=== PATIENT | female | born 1980 | race Caucasian/White ===

== ENCOUNTER 2021-02-19 20:52 | Emergency (ER) | payer OTHER, SELFPAY ==
[2019-11-16 07:30] VITALS: BMI 21.9
[2021-02-19 20:55] VITALS: BP 93/45; PULSE 78; RESP 18; TEMP 37.4; O2SAT 96; BMI 21.4
--- NOTE | 2021-02-19 21:28 | EDS_ITS ---
HPI History of Present Illness Chief Complaint: Nausea/Vomiting/Diarrhea Informant: patient Narrative Narrative: 40-year-old female states she got her second Covid shot on Thursday. She is felt a little rundown but was getting better. Early this morning she developed nausea vomiting and diarrhea. This is persisted throughout the day. She notes a slight cough rhinorrhea and sore throat. She notes subjective fever and sweats. She denies any rashes. No shortness of breath or chest pain. PFSH PFSH no medical history Home Medications ondansetron 4 mg PO Q6H PRN PRN #15 tab 02/19/21 [Rx Last Taken Unknown] Allergy/AdvReac Type Severity Reaction Status Date / Time hydromorphone HCl Allergy Itching Verified 02/19/21 20:55 [From Dilaudid] Sulfa (Sulfonamide Allergy Hives Verified 02/19/21 20:55 Antibiotics) sulfamethoxazole Allergy Hives Verified 02/19/21 20:55 [From Bactrim] trimethoprim [From Bactrim] Allergy Hives Verified 02/19/21 20:55 codeine AdvReac Nausea/Vom/ Verified 02/19/21 20:55 Diarrhea Family History Other Cancer Diabetes Heart disease Surgical History History of back surgery History of hysterectomy Social History (Updated 02/19/21 @ 21:[address] Domenic Cumimngs DO) Smoking Status: Current every day smoker substance use type: does not use ROS ROS ED Constitutional Constitutional ED: Reports chills, fever(s), subjective and sweats; Denies weight loss Eyes Eyes: Denies change in vision or diplopia ENT ENT ED: Reports rhinorrhea and sore throat; Denies ear pain Cardiovascular Cardiovascular: Denies chest pain, orthopnea, palpitations or racing heartbeat Respiratory/Chest Respiratory/Chest: Reports cough; Denies dyspnea or orthopnea Gastrointestinal Gastrointestinal: Reports abdominal pain, diarrhea, nausea and vomiting Genitourinary Genitourinary ED: Denies dysuria, hematuria or urinary frequency Musculoskeletal Musculoskeletal: Denies arthralgias or myalgias Integumentary Denies abscess or rash Neurologic Neurologic: Denies headache(s) or weakness Psychiatric Psychiatric: Denies anxiety, depression, suicidal ideation or suicidal thoughts Endocrine Endocrinology: Denies polydipsia, polyphagia or polyuria Allergic/Immunologic Allergic/Immunologic ED: Denies mouth swelling, tongue swelling or urticaria EXAM Physical Exam Const Vital Signs: 02/19/21 20:55 02/19/21 22:40 Temperature 99.4 F H 98.8 F Temperature Source Temporal Temporal Pulse Rate 78 80 Respiratory Rate 18 18 Blood Pressure 93/45 L 101/64 Blood Pressure Mean 61 76 Pulse Ox 96 97 Oxygen Delivery Method Room Air Room Air Positive well nourished and well developed General Appearance ED: well developed HEENT Reports normocephalic, head/scalp atraumatic and moist mucous membranes Eyes PERRL and EOMs intact bilaterally Neck no lymphadenopathy, supple and no JVD Resp normal respiratory effort and clear to auscultation bilaterally Cardio regular rate, regular rhythm and no murmurs GI GI Narrative: Diffusely tender to palpation. I would classify this is a nonsurgical abdomen. Auscultation: normoactive bowel sounds Palpation: soft; Negative for guarding or rebound tenderness present Back/Spine no CVA tenderness and normal ROM Extremity normal to inspection General Extremety ED: Negative for edema General Extremity: Negative for edema Neuro oriented x3 and CN's II-XII intact bilaterally Sensorium / Orientation: alert Motor Exam: strength 5/5 throughout Psych mental status grossly normal Mood & Affect: Negative for depressed or tearful Skin no rashes or lesions noted and no wounds MDM MDM Lab Data Labs: Laboratory Results - last 24 hr 02/19/21 02/19/21 21:42 21:42 WBC 4.5 RBC 4.37 Hgb 13.5 Hct 39.6 MCV 90.6 MCH 30.9 MCHC 34.1 RDW Std Deviation 44.1 H RDW Coeff of Js 13.3 Plt Count 171 MPV 9.1 Immature Gran % (Auto) 0.200 Neut % (Auto) 87.6 H Lymph % (Auto) 7.6 L [place] % (Auto) 4.2 Eos % (Auto) 0.0 Baso % (Auto) 0.4 Absolute Neuts (auto) 3.9 Absolute Lymphs (auto) 0.34 L Nucleated RBC % 0 Differential Comment SCANNED Diff Path Review May foll Sodium 136 Potassium 3.1 L Chloride 104 Carbon Dioxide 24.0 Anion Gap 8 BUN 14 Creatinine 0.71 Estim Creat Clear Calc 90.95 Est GFR (MDRD) Af Amer 117 Est GFR (MDRD) Non-Af 97 BUN/Creatinine Ratio 19.7 Glucose 94 Calcium 8.6 Total Bilirubin 0.40 AST 18 ALT 19 Alkaline Phosphatase 47 Total Protein 7.0 Albumin 3.5 Globulin 3.5 Albumin/Globulin Ratio 1.0 Lipase 39 L Discharge Plan Triage Chief Complaint: Nausea/Vomiting/Diarrhea Other Complaint: Fever Complaint ED Provider: Domenic Cummings Dx/Rx/DC Orders Clinical Impression: Gastroenteritis Instructions: ED Gastroenteritis, Viral (Adult) Prescriptions: New ondansetron [ondansetron] 4 MG tablet 4 mg PO Q6H PRN PRN (Reason: Nausea) Qty: 15 RF: 0 Primary Care Provider: Care Physician,No Primary Referrals: Fernando Spaulding MD [STAFF PHYSICIAN] - As Needed (For primary care) Care Physician,No Primary [Primary Care Provider] - Disposition Disposition: Home, self care
[2021-02-19] MEDS: 0.9% Normal Saline 1,000 ML 1000 ML IV (21:45)
[2021-02-19] MEDS: Ketorolac 30 MG/ML Syringe IV (21:50)
[2021-02-19] MEDS: Ondansetron 4 MG/2 ML Vial IV (21:50)
[2021-02-19 21:51] LABS: Absolute Lymphocyte Count 0.34 X10^3/uL (0.83-4.51); Absolute Neutrophil Count 3.9 X10^3/uL (2.0-7.7); Basophil# 0.02 X10^3/uL; Basophil% 0.4 % (0-1); Hematocrit 39.6 % (37-47); Hemoglobin 13.5 g/dL (12.0-15.0); Lymphocyte # 0.34 X10^3/ul (0.83-4.51); Lymphocyte % 7.6 % (19-41); Mean Corp Hgb Conc 34.1 g/dL (32-36); Mean Corpuscular Hgb 30.9 pg (27.0-32.0); Mean Corpuscular Volume 90.6 fL (81-99); Mean Platelet Vol. 9.1 fl (6.2-12.0); Monocyte# 0.19 X10^3/uL; Monocyte% 4.2 % (0-10); NRBC Flagged by Analyzer 0 % (0-5); Neutrophil # 3.92 X10^3/uL (2.7-7.7); Neutrophil % 87.6 % (47-70); POSITIVE DIFFERENTIAL YES; Platelet Count 171 K/mm3 (150-450); RBC Distribution Width CV 13.3 % (11.6-14.6); RBC Distribution Width SD 44.1 fl (35.1-43.9); Red Blood Count 4.37 M/mm3 (4.2-5.4); White Blood Count 4.5 K/mm3 (4.4-11.0)
[2021-02-19 22:12] LABS: AST(SGOT) 18 U/L (15-37); Alanine Aminotransfer ALT/SGPT 19 U/L (13-56); Albumin, Serum 3.5 g/dL (3.2-5.0); Alkaline Phosphatase 47 U/L (45-117); Anion Gap 8 (5-15); BUN 14 mg/dL (7-18); BUN/Creat Ratio 19.7 RATIO (10-20); Calcium,Total 8.6 mg/dL (8.5-10.1); Chloride 104 mmol/L (98-107); Creatinine, Serum 0.71 mg/dL (0.55-1.02); EST Glomerular Filtration Rate 97 mL/min (>60); Est Glom Filt Rate - Afr Amer 117 mL/min (>60); Estimated Creatinine Clearance 90.95 ml/min; Globulin 3.5 g/dL (2.2-4.2); Glucose 94 mg/dL (74-106); Lipase 39 U/L (73-393); Potassium 3.1 mmol/L (3.5-5.1); Sodium Level 136 mmol/L (136-145)
[2021-02-19 22:17] LABS: Differential Comment SCANNED; Differential Indicated SCAN CRITERIA MET
[2021-02-19 22:40] VITALS: BP 101/64; PULSE 80; RESP 18; TEMP 37.1; O2SAT 97
[2021-02-20] MEDS: Ondansetron ODT 4 MG Tablet PO (00:08)
[2021-02-20 13:30] LABS: Pathologist Review Reviewed
== END 2021-02-20 00:10 | disposition home or self-care (01) ==
PROVIDERS: Emergency Provider Emergency Medicine
DX: K52.9 Noninfective gastroenteritis and colitis, unspecified (principal); F17.200 Nicotine dependence, unspecified, uncomplicated
CPT/HCPCS: 80053; 83690; 85025; 87426; 99282; J7030; A4216; J2405

== ENCOUNTER 2021-11-14 08:18 | Emergency (ER) | payer OTHER, SELFPAY ==
[2021-11-14 08:18] VITALS: BP 117/79; PULSE 83; RESP 16; TEMP 36.3; O2SAT 100; BMI 23.0
--- NOTE | 2021-11-14 08:45 | ED.VIS.GI ---
HPI HPI - GI History of Present Illness Chief Complaint: Abd Pain Informant: patient Abdominal Pain/Flank Pain Onset: Days (4) Context: Gradual Onset Timing: Continuous Quality: Burning Location: LUQ Worsened by: Nothing Relieved by: - (Drinking water) Nausea/Vomiting/Emesis GI Symptom: Positive for Nausea; Negative for Vomiting Diarrhea/Melena/Hematochezia GI Symptom: Negative for Diarrhea, Melena and Hematochezia Associated Symptoms Associated Symptoms: Positive for Dysuria; Negative for Frequency, Hematuria and Urgency Narrative Narrative: Patient presents with left upper quadrant abdominal pain that has been getting worse over the past 3 to 4 days. Patient states it is gradually getting worse. Patient describes her pain as burning. Patient states the pain is over the left upper quadrant and left flank area. Patient states her pain is better after drinking water. Patient states nothing makes it worse. Patient admits to nausea but denies any vomiting. Patient denies any diarrhea, melena, or hematochezia. Patient also admits to some dysuria but denies any hematuria or frequency. PFSH PFS Medical History ISAAC (generalized anxiety disorder) IBS (irritable bowel syndrome) PTSD (post-traumatic stress disorder) Home Medications cephalexin 500 mg PO Q6 #20 capsule 11/14/21 [Rx Last Taken Unknown] esomeprazole magnesium [Nexium] 20 mg PO DAILY 11/14/21 [History Last Taken Unknown] Allergy/AdvReac Type Severity Reaction Status Date / Time hydromorphone HCl Allergy Itching Verified 11/14/21 08:20 [From Dilaudid] Sulfa (Sulfonamide Allergy Hives Verified 11/14/21 08:20 Antibiotics) sulfamethoxazole Allergy Hives Verified 11/14/21 08:20 [From Bactrim] trimethoprim [From Bactrim] Allergy Hives Verified 11/14/21 08:20 codeine AdvReac Nausea/Vom/ Verified 11/14/21 08:20 Diarrhea Family History Other Cancer Diabetes Heart disease Surgical History History of back surgery History of hysterectomy Social History (Updated 11/14/21 @ 08:[address] Mike Schwiger, DO) Smoking Status: Current every day smoker tobacco type: cigarettes substance use type: marijuana ROS ROS ED Constitutional Constitutional ED: Reports chills and subjective; Denies fever(s) Eyes Eyes: Denies blurry vision or change in vision ENT ENT ED: Reports sore throat; Denies rhinorrhea Cardiovascular Cardiovascular: Denies chest pain or palpitations Respiratory/Chest Respiratory/Chest: Denies cough or dyspnea Gastrointestinal Gastrointestinal: Reports abdominal pain and nausea; Denies vomiting Genitourinary Genitourinary ED: Reports dysuria; Denies hematuria Musculoskeletal Musculoskeletal: Reports back pain; Denies neck pain Integumentary Denies abscess or rash Neurologic Neurologic: Reports headache(s); Denies weakness Allergic/Immunologic Allergic/Immunologic ED: Denies mouth swelling or urticaria EXAM Physical Exam Const Vital Signs: 11/14/21 08:18 11/14/21 10:47 Temperature 97.3 F L Temperature Source Temporal Pulse Rate 83 57 L Respiratory Rate 16 Blood Pressure 117/79 108/75 Blood Pressure Mean 91 86 Pulse Ox 100 Oxygen Delivery Method Room Air Positive well nourished and well developed General Appearance ED: well developed HEENT Reports moist mucous membranes Neck supple and no JVD Resp normal respiratory effort and clear to auscultation bilaterally Cardio regular rate, regular rhythm and no murmurs GI normal to inspection, nondistended, normoactive bowel sounds and non-distended Auscultation: normoactive bowel sounds Palpation: soft and tender LUQ; Negative for guarding or rebound tenderness present Extremity normal to inspection General Extremety ED: Negative for edema or tenderness General Extremity: Negative for edema Neuro oriented x3, CN's II-XII intact bilaterally and no sensory deficits noted Sensorium / Orientation: alert Motor Exam: strength 5/5 throughout Psych mental status grossly normal Skin no rashes or lesions noted MDM MDM MDM Narrative Medical decision making narrative: Patient was given IV fluids, morphine, and Zofran. CBC was within normal limits. Comprehensive metabolic profile was within normal limits. Lipase was normal. Urinalysis shows leukocyte esterase of 500 with 5-10 white blood cells and 10-25 squamous epithelial cells. There is 2+ bacteria. Urine culture was ordered. It is a contaminated specimen however, since the patient has pain in her left flank area, we will treat for possible urinary tract infection with Keflex. Patient was given her first dose here. Patient was instructed to follow-up with her primary care physician in 5 to 7 days. Patient understood and was agreeable with the plan. All questions were answered. Lab Data Attestation: I reviewed the patient's lab results. Labs: Laboratory Results - last 24 hr 11/14/21 11/14/21 11/14/21 08:31 08:38 08:38 WBC 7.0 RBC 4.52 Hgb 14.1 Hct 41.3 MCV 91.4 MCH 31.2 MCHC 34.1 RDW Std Deviation 46.5 H RDW Coeff of Js 13.6 Plt Count 279 MPV 8.8 Immature Gran % (Auto) 0.400 Neut % (Auto) 60.4 Lymph % (Auto) 30.0 [place] % (Auto) 6.5 Eos % (Auto) 2.0 Baso % (Auto) 0.7 Absolute Neuts (auto) 4.2 Absolute Lymphs (auto) 2.09 Nucleated RBC % 0 Sodium 137 Potassium 3.7 Chloride 105 Carbon Dioxide 26.0 Anion Gap 6 BUN 10 Creatinine 0.80 Estim Creat Clear Calc 76.55 Est GFR (MDRD) Af Amer 102 Est GFR (MDRD) Non-Af 84 BUN/Creatinine Ratio 12.6 Glucose 82 Calcium 8.8 Total Bilirubin 0.40 AST 15 ALT 22 Alkaline Phosphatase 59 Total Protein 7.4 Albumin 3.8 Globulin 3.6 Albumin/Globulin Ratio 1.1 Lipase 59 L Urine Color Yellow Urine Clarity Sl. Cloudy Urine pH 6.0 Ur Specific [place] 1.015 Urine Protein 15 H Urine Glucose (UA) Normal Urine Ketones Negative Urine Occult Blood Negative Urine Nitrite Negative Urine Bilirubin Negative Urine Urobilinogen Normal Ur Leukocyte Esterase 500 H Urine RBC 0 SEEN Urine WBC 5-10 SEEN Ur Squamous Epith Cells 10-25 SEEN Urine Bacteria 2+ Urine Mucus 0 SEEN Radiography Diagnostic Testing: Clinical Impression(s) from Imaging Studies Abdomen/Pelvis CT 11/14/21 08:50 IMPRESSION: 3.8 cm x 2.7 cm cyst is seen in the right adnexa with a minimal amount of free fluid in the right hemipelvis. Electronically Signed: Flakito Oneill MD at 10:56 EST , Discharge Plan Triage Chief Complaint: Abd Pain ED Provider: Mike Murdock Dx/Rx/DC Orders Clinical Impression: Left flank pain Instructions: ED CYSTITIS Female Adult Prescriptions: New cephalexin [cephalexin] 500 MG capsule 500 mg PO Q6 Qty: 20 RF: 0 No Action esomeprazole magnesium [Nexium] 20 mg Capsule,Delayed Release(Dr/Ec) 20 mg PO DAILY RF: 0 Primary Care Provider: Care Physician,No Primary Referrals: Crystal Day DO [STAFF PHYSICIAN] - 3-5 Days Care Physician,No Primary [Primary Care Provider] - Disposition Disposition: Home, Self Care
--- NOTE | 2021-11-14 08:50 | CT_ITS ---
STUDY: CT ABDOMEN AND PELVIS WITH CONTRAST REASON FOR EXAM: Female, 41 years old. Left flank pain. RADIATION DOSAGE (If Supplied By Facility): CTDIvol = ( 13.72 ) mGy, DLP = ( 368.36 ) mGycm TECHNIQUE: Transaxial images were obtained from the dome of the diaphragm to the symphysis pubis without oral contrast. Oral and amp; IV Gastrografin and amp; 100mL Isovue-300 was administered. Sagittal and coronal images were reconstructed. Individualized dose optimization techniques were used for this CT. COMPARISON: None. FINDINGS: The visualized lung bases are unremarkable. The visualized portions of the heart are within normal limits. Normal liver. Normal gallbladder and extrahepatic biliary system. Normal spleen. Normal pancreas. Normal bilateral adrenal glands. Normal right kidney. Normal left kidney. Normal visualized stomach. Normal small intestine. Normal colon. The appendix is visualized and appears normal. Normal abdominal aorta. Normal inferior vena cava. Normal retroperitoneum. The urinary bladder is distended. There is a 3.4 cm x 3.9 cm septated cyst in the right adnexa. Minimal amount of free fluid is seen in the right hemipelvis. Normal abdominal wall. Normal osseous structures. CT/Abdomen/Pelvis WITH Contrast IMPRESSION: 3.8 cm x 2.7 cm cyst is seen in the right adnexa with a minimal amount of free fluid in the right hemipelvis. Electronically Signed: Flakito Oneill MD at 10:56 [facility] ,
[2021-11-14 08:51] LABS: Mucous, Urine 0 SEEN /hpf (<or=2+); Red Blood Cells-Urine 0 SEEN /hpf (0-5)
[2021-11-14 08:52] LABS: Color, Urine Yellow (Yellow); Glucose, Dipstick Normal (Normal); Ketone-Dipstick Negative (Negative); Leukocyte Esterase-Dipstick 500 /ul (Negative); Nitrite-Dipstick Negative (Negative); Occult Blood-Urine Negative /ul (Negative); Protein-Dipstick 15 mg/dl (Negative); Specific Gravity, Urine 1.015 (1.002-1.030); Urine Bilirubin Dipstick Negative (Negative); Urine Clarity Sl. Cloudy (Clear); Urine Urobilinogen Normal (Normal)
[2021-11-14] MEDS: Ondansetron 4 MG/2 ML Vial IV (08:52)
[2021-11-14] MEDS: Morphine 4 MG/ML Syringe IV (08:52)
[2021-11-14] MEDS: 0.9% Normal Saline 1,000 ML 1000 ML IV (08:52)
[2021-11-14 08:54] LABS: Absolute Lymphocyte Count 2.09 X10^3/uL (0.83-4.51); Absolute Neutrophil Count 4.2 X10^3/uL (2.0-7.7); Basophil# 0.05 X10^3/uL; Basophil% 0.7 % (0-1); Eosinophil# 0.14 X10^3/uL; Hematocrit 41.3 % (37-47); Hemoglobin 14.1 g/dL (12.0-15.0); Lymphocyte # 2.09 X10^3/ul (0.83-4.51); Mean Corp Hgb Conc 34.1 g/dL (32-36); Mean Corpuscular Hgb 31.2 pg (27.0-32.0); Mean Corpuscular Volume 91.4 fL (81-99); Mean Platelet Vol. 8.8 fl (6.2-12.0); Monocyte# 0.45 X10^3/uL; Monocyte% 6.5 % (0-10); NRBC Flagged by Analyzer 0 % (0-5); Neutrophil % 60.4 % (47-70); Platelet Count 279 K/mm3 (150-450); RBC Distribution Width CV 13.6 % (11.6-14.6); RBC Distribution Width SD 46.5 fl (35.1-43.9); Red Blood Count 4.52 M/mm3 (4.2-5.4)
[2021-11-14 08:58] LABS: Squamous Epithelial Cells - UA 10-25 SEEN /hpf (5-10)
[2021-11-14 08:59] LABS: Bacteria 2+ /hpf (None Seen); White Blood Cells 5-10 SEEN /hpf (0-5)
[2021-11-14 09:08] LABS: ALB/GLOB Ratio 1.1 RATIO (0.9-2.4); AST(SGOT) 15 U/L (15-37); Alanine Aminotransfer ALT/SGPT 22 U/L (13-56); Albumin, Serum 3.8 g/dL (3.2-5.0); Alkaline Phosphatase 59 U/L (45-117); Anion Gap 6 (5-15); BUN 10 mg/dL (7-18); BUN/Creat Ratio 12.6 RATIO (10-20); Calcium,Total 8.8 mg/dL (8.5-10.1); Chloride 105 mmol/L (98-107); EST Glomerular Filtration Rate 84 mL/min (>60); Est Glom Filt Rate - Afr Amer 102 mL/min (>60); Estimated Creatinine Clearance 76.55 ml/min; Globulin 3.6 g/dL (2.2-4.2); Glucose 82 mg/dL (74-106); Lipase 59 U/L (73-393); Potassium 3.7 mmol/L (3.5-5.1); Protein, Total 7.4 g/dL (6.4-8.2); Sodium Level 137 mmol/L (136-145)
[2021-11-14 10:47] VITALS: BP 108/75; PULSE 57
[2021-11-14] MEDS: Cephalexin 500 MG Capsule PO (12:40)
[2021-11-14 12:44] VITALS: PULSE 60; RESP 14
== END 2021-11-14 12:45 | disposition home or self-care (01) ==
PROVIDERS: Emergency Provider Emergency Medicine; Visit Provider Emergency Medicine
DX: R10.9 Unspecified abdominal pain (principal); R11.2 Nausea with vomiting, unspecified; F17.210 Nicotine dependence, cigarettes, uncomplicated; R30.0 Dysuria; F12.90 Cannabis use, unspecified, uncomplicated
CPT/HCPCS: 74177; 80053; 81001; 83690; 85025; 87086; 87088; 99284; J7030; Q9967; A4216; J2405